=== PATIENT | male | born 1980 | race Caucasian/White ===

== ENCOUNTER 2019-09-29 10:00 | Inpatient (IN) | payer MEDICAID ==
[~2019-09-29] VITALS: Ht 167.6 cm; Wt 70.3 kg
[2019-09-29 11:02] LABS: MEAN CORPUSCULAR HEMOGLOBIN 30.3 pg (28.0-32.0); MEAN CORPUSCULAR VOLUME 87.7 fL (80.0-94.0); MEAN PLATELET VOLUME 7.7 fl (7.4-10.4); PLATELET 134 x1000/uL (130-400); RED BLOOD CELL COUNT 2.18 mill/uL (4.7-6.1); RED CELL DISTRIBUTION WIDTH 14.5 % (11.6-14.6)
[2019-09-29 11:05] LABS: CHLORIDE 105 mEq/L (98-107)
[2019-09-29] MEDS ORDERED: OXYCODONE HCL/ACETAMINOPHEN 5/325MG TABLET PO ONE (11:15)
[2019-09-29 11:19] LABS: HEMOGLOBIN. 6.6 g/dL (14.0-18.0)
[2019-09-29 11:20] LABS: HEMATOCRIT. 19.1 % (42.0-52.0)
[2019-09-29 11:43] LABS: PLATELET ESTIMATE NORMAL
[2019-09-29] MEDS ORDERED: LIDOCAINE HCL 1% 20ML VIAL (Pyxis) INJ ONE (12:58)
[2019-09-29] MEDS ORDERED: SODIUM BICARBONATE 4% (2.4MEQ) 5ML VIAL IV ONE (12:58)
[2019-09-29] MEDS ORDERED: IPRATROPIUM/ALBUTEROL 0.5-3(2.5)MG/3ML NEB NEB PRN (13:15)
[2019-09-29] MEDS ORDERED: DOCUSATE SODIUM 100MG CAPSULE PO PRN (13:15)
[2019-09-29] MEDS ORDERED: MAGNESIUM/ALUMINUM HYDROXIDE/SIMETHICONE 30ML UDC PO PRN (13:15)
[2019-09-29] MEDS ORDERED: ACETAMINOPHEN 325MG TABLET PO PRN (13:15)
[2019-09-29] MEDS ORDERED: DIPHENHYDRAMINE 50MG/ML VIAL IV PRN (13:15)
[2019-09-29] MEDS ORDERED: CLONIDINE 0.1MG TABLET PO PRN (13:15)
[2019-09-29] MEDS ORDERED: ONDANSETRON HCL 4MG/2ML INJ IV PRN (13:15)
[2019-09-29] MEDS ORDERED: NITROGLYCERIN 0.4MG TABLET SL SL PRN (13:15)
[2019-09-29] MEDS ORDERED: ENOXAPARIN 40MG/0.4ML SYR SUBCUT SCH ×2 (13:15→21:00)
[2019-09-29] MEDS ORDERED: GUAIFENESIN 200MG/10ML SUGAR FREE UDC PO PRN (13:15)
[2019-09-29] MEDS: AMLODIPINE 10MG TABLET PO SCH (13:59)
[2019-09-29 14:58] LABS: PHOSPHORUS 8.5 mg/dL (2.5-4.9)
[2019-09-29 15:18] LABS: TOTAL IRON BINDING CAPACITY 246 ug/dL (250-450)
[2019-09-29] MEDS ORDERED: SEVELAMER CARBONATE 800 MG TABLET PO SCH (17:00)
[2019-09-29] MEDS: SEVELAMER CARBONATE 800 MG TABLET PO SCH (18:13)
[2019-09-29 20:00] VITALS: BP 159/88
[2019-09-29] MEDS ORDERED: PREDNISONE 5MG TABLET PO NR (20:00)
[2019-09-29] MEDS: FAMOTIDINE 20MG TABLET PO SCH (20:58)
[2019-09-29] MEDS ORDERED: ZOLPIDEM TARTRATE 5MG TABLET PO PRN (21:00)
[2019-09-29 23:59] LABS: CREATINE KINASE 88 IU/L (39-308)
[2019-09-30] VITALS: BP 129/88
[2019-09-30] LABS: CREATINE KINASE MB FRACTION < 1.0 ng/mL (0.5-3.6)
[2019-09-30 04:00] VITALS: BP 167/99
[2019-09-30] MEDS ORDERED: TACR1CAP MT (04:06)
[2019-09-30] MEDS ORDERED: LISI10TA5 MT (04:06)
[2019-09-30] MEDS ORDERED: PROG1 MT (04:06)
[2019-09-30] MEDS ORDERED: PRED5TAB MT (04:06)
[2019-09-30] MEDS ORDERED: MYCO250C MT (04:06)
[2019-09-30] MEDS ORDERED: ERGO400C MT (04:15)
[2019-09-30] MEDS ORDERED: MAGN200T5 PO (04:15)
[2019-09-30] MEDS ORDERED: PRAV20TA57 MT (04:15)
[2019-09-30] MEDS ORDERED: DILT-27 PO (04:15)
[2019-09-30] MEDS ORDERED: CALC0.253 MT (04:15)
[2019-09-30] MEDS ORDERED: OMEP20CA14 PO (04:15)
[2019-09-30] MEDS ORDERED: FERR325T6 MT (04:15)
[2019-09-30 06:50] LABS: PHOSPHORUS 4.9 mg/dL (2.5-4.9)
[2019-09-30 07:22] LABS: BASOPHILS % 0.7 % (0.0-2.0); EOSINOPHILS % 0.4 % (0.0-5.0); HEMOGLOBIN. 7.5 g/dL (14.0-18.0); LYMPHOCYTES % 23.7 % (20.0-50.0); MEAN CORPUSCULAR HEMOGLOBIN 29.2 pg (28.0-32.0); MEAN CORPUSCULAR VOLUME 85.6 fL (80.0-94.0); MEAN PLATELET VOLUME 7.1 fl (7.4-10.4); MONOCYTES % 8.2 % (2.0-8.0); PLATELET 146 x1000/uL (130-400); RED BLOOD CELL COUNT 2.57 mill/uL (4.7-6.1); RED CELL DISTRIBUTION WIDTH 15.3 % (11.6-14.6)
[2019-09-30 08:00] VITALS: BP 146/85
[2019-09-30] MEDS: SEVELAMER CARBONATE 800 MG TABLET PO SCH ×2 (08:08→12:19)
[2019-09-30] MEDS: AMLODIPINE 10MG TABLET PO SCH (08:50)
[2019-09-30] MEDS: FAMOTIDINE 20MG TABLET PO SCH (08:51)
[2019-09-30] MEDS ORDERED: FOLIC ACID/VITAMIN B COMP W-C TABLET PO SCH (09:00)
[2019-09-30] MEDS ORDERED: CALCITRIOL 0.25MCG CAPSULE PO SCH (09:00)
[2019-09-30 12:32] VITALS: BP 142/78
[2019-09-30 12:47] VITALS: BP 151/89
[2019-09-30] MEDS ORDERED: ENOXAPARIN 30MG/0.3ML SYR SUBCUT SCH (17:00)
[2019-10-04 06:09] LABS: 25-HYDROXY VITAMIN D3 7.1 ng/mL (.)
== END 2019-09-30 14:26 | disposition home or self-care (01) | DRG 466 ==
LOC: ER 10:00 → 6WST 12:31 → ENRESERV 18:05
PROVIDERS: ADMIT Internal Medicine; ATTEND Internal Medicine
PROC: 02HV33Z Insertion of Infusion Device into Superior Vena Cava, Percutaneous Approach (ICD-10-PCS; principal; 2019-09-29)
PROC: B548ZZA Ultrasonography of Superior Vena Cava, Guidance (ICD-10-PCS; 2019-09-29)
PROC: 5A1D70Z Performance of Urinary Filtration, Intermittent, Less than 6 Hours Per Day (ICD-10-PCS; 2019-09-29)
PROC: 30233N1 Transfusion of Nonautologous Red Blood Cells into Peripheral Vein, Percutaneous Approach (ICD-10-PCS; 2019-09-30)
DX: T82.510A Breakdown (mechanical) of surgically created arteriovenous fistula, initial encounter (principal); N18.6 End stage renal disease; I13.2 Hypertensive heart and chronic kidney disease with heart failure and with stage 5 chronic kidney disease, or end stage renal disease; E44.0 Moderate protein-calorie malnutrition; E87.2 Acidosis; D63.8 Anemia in other chronic diseases classified elsewhere; E83.51 Hypocalcemia; K29.70 Gastritis, unspecified, without bleeding; K64.9 Unspecified hemorrhoids; I50.31 Acute diastolic (congestive) heart failure; N25.81 Secondary hyperparathyroidism of renal origin; Y82.8 Other medical devices associated with adverse incidents; Z87.11 Personal history of peptic ulcer disease; Z94.0 Kidney transplant status; Z99.2 Dependence on renal dialysis; Y92.89 Other specified places as the place of occurrence of the external cause; Z79.899 Other long term (current) drug therapy
CPT/HCPCS: 36415; 71045; 76937; 77001; 80048; 80053; 80061; 80197; 82306; 82550; 82553; 82607; 82746; 83036; 83540; 83550; 83735; 83970; 84100; 84484; 85025; 86850; 86900; 86920; 93970; 99285; C1752; J1642; J3490; J7512; P9016

== ENCOUNTER 2022-10-22 15:24 | Inpatient (IN) | payer MEDICAID, OTHER ==
[~2022-10-22] VITALS: Ht 167.6 cm; Wt 83.9 kg
[~2022-10-22 15:24] MED LIST: CALC0.253 PO; DILT-27 PO; DOCU-150 PO; ERGO400C PO; FERR325T6 PO; FOLI0.8T23 MT; LISI10TA26 PO; MAGN200T5 PO; MYCO250C PO; OMEP20CA14 PO; PRAV20TA57 PO; PRED5TAB PO; REN800 PO; SENN-178 PO; TRAM50TA3 PO
[2022-10-22] MEDS ORDERED: FAMOTIDINE 20MG TABLET PO ONE (18:30)
[2022-10-22 18:44] LABS: BASOPHILS % 0.9 % (0.0-2.0); EOSINOPHILS % 2.3 % (0.0-5.0); HEMATOCRIT. 23.4 % (42.0-52.0); LYMPHOCYTES % 21.6 % (20.0-50.0); MEAN CORPUSCULAR HEMOGLOBIN 19.9 pg (28.0-32.0); MEAN CORPUSCULAR VOLUME 67.6 fL (80.0-94.0); MEAN PLATELET VOLUME 7.5 fl (7.4-10.4); MONOCYTES % 8.8 % (2.0-8.0); NEUTROPHILS % 66.4 % (40.0-76.0); PLATELET 291 x1000/uL (130-400); RED BLOOD CELL COUNT 3.46 mill/uL (4.7-6.1); RED CELL DISTRIBUTION WIDTH 17.6 % (11.6-14.6)
[2022-10-22] MEDS ORDERED: PANTOPRAZOLE SODIUM 40 MG/VIAL IV ONE (18:45)
[2022-10-22 18:48] LABS: HEMOGLOBIN. 6.9 g/dL (14.0-18.0)
[2022-10-22 18:50] LABS: CHLORIDE 114 mEq/L (98-107)
[2022-10-22 19:18] LABS: PLATELET ESTIMATE NORMAL
[2022-10-22 19:32] LABS: CLARITY URINE CLEAR (CLEAR); COLOR URINE YELLOW (YELLOW); KETONES URINE NEGATIVE (NEGATIVE); LEUKOCYTE ESTERASE URINE NEGATIVE (NEGATIVE); NITRITE URINE NEGATIVE (NEGATIVE); OCCULT BLOOD URINE NEGATIVE (NEGATIVE); PH URINE 6.5 (4.5-8.0); PROTEIN URINE NEGATIVE (NEGATIVE); SPECIFIC GRAVITY URINE 1.019 (1.005-1.030); UROBILINOGEN URINE 0.2 E.U./dL (0.2-1.0)
[2022-10-22] MEDS ORDERED: PANTOPRAZOLE 80 MG in SODIUM CHLORIDE 0.9% 100 ML IV SCH (19:45)
[2022-10-22] MEDS ORDERED: MORPHINE SULFATE 4 MG/ML CPJ (NOT FOR IM USE) IV STA (19:46)
[2022-10-22] MEDS ORDERED: ONDANSETRON HCL 4MG/2ML INJ IV STA (19:46)
[2022-10-22] MEDS ORDERED: PANTOPRAZOLE SODIUM 40 MG/VIAL IV NR (20:30)
[2022-10-22] MEDS ORDERED: FAMOTIDINE 20MG TABLET PO NR (20:30)
[2022-10-22] MEDS: PANTOPRAZOLE 80 MG in SODIUM CHLORIDE 0.9% 100 ML IV SCH (20:50)
[2022-10-22] MEDS ORDERED: SODIUM CHLORIDE 0.9% 1,000 ML IV ONE (22:45)
[2022-10-22] MEDS ORDERED: DIPHENHYDRAMINE 50MG/ML VIAL IV NR (22:45)
[2022-10-23] MEDS: PANTOPRAZOLE 80 MG in SODIUM CHLORIDE 0.9% 100 ML IV SCH (09:18)
[2022-10-23] MEDS ORDERED: ACETAMINOPHEN 325MG TABLET PO PRN (10:45)
[2022-10-23] MEDS ORDERED: ONDANSETRON HCL 4MG/2ML INJ IV PRN (10:45)
[2022-10-23 16:00] VITALS: BP 127/78
[2022-10-23] MEDS ORDERED: PANTOPRAZOLE SODIUM 40 MG/VIAL IV SCH (17:00)
[2022-10-23 17:29] VITALS: BP 126/88
[2022-10-23] MEDS ORDERED: TACR5CAP MT (18:18)
[2022-10-23] MEDS ORDERED: NIFE-33 PO (18:18)
[2022-10-23] MEDS ORDERED: TACR1CAP MT (18:18)
[2022-10-23] MEDS ORDERED: CARV3.1242 PO (18:18)
[2022-10-23] MEDS ORDERED: TACR0.5C4 MT (18:18)
[2022-10-23] MEDS ORDERED: ALUM1POW3 MC (18:18)
[2022-10-23] MEDS ORDERED: PANT40TA51 PO (18:18)
[2022-10-23] MEDS: TACROLIMUS 1MG CAPSULE PO SCH (19:03)
[2022-10-23] MEDS: SUCRALFATE 1 G/10 ML UDC PO SCH ×2 (19:03→21:36)
[2022-10-23] MEDS ORDERED: HYDROCODONE/ACETAMINOPHEN 5/325MG TABLET PO PRN (19:30)
[2022-10-23] MEDS ORDERED: NALOXONE HCL 0.4MG/ML VIAL IV PRN (19:30)
[2022-10-23] MEDS ORDERED: TEMAZEPAM 15MG CAPSULE PO PRN (19:45)
[2022-10-23 19:54] LABS: HEMATOCRIT 28.2 % (42.0-52.0); HEMOGLOBIN 8.6 g/dL (14.0-18.0)
[2022-10-23 20:00] VITALS: BP 131/88
[2022-10-23] MEDS ORDERED: INFLUENZA VACCINE 05/PF 0.5 ML SYRINGE IM ONE (20:00)
[2022-10-23 20:41] LABS: TOTAL IRON BINDING CAPACITY 469 ug/dL (250-450)
[2022-10-23 21:09] LABS: FERRITIN < 5 ng/mL (22-322)
[2022-10-23 21:19] LABS: VITAMIN B12 SERUM 762 pg/mL (211-911)
[2022-10-23 21:30] LABS: FOLIC ACID (FOLATE) SERUM > 20.00 ng/mL (>5.38)
[2022-10-23] MEDS: MYCOPHENOLATE MOFETIL 500MG TABLET PO SCH (21:36)
[2022-10-23] MEDS: CARVEDILOL 6.25 MG TABLET PO SCH (21:36)
[2022-10-24] VITALS: BP 114/83
[2022-10-24 01:55] LABS: HEMATOCRIT 26.7 % (42.0-52.0); HEMOGLOBIN 8.2 g/dL (14.0-18.0)
[2022-10-24 04:00] VITALS: BP 125/60
[2022-10-24 04:16] LABS: EOSINOPHILS % 4.8 % (0.0-5.0); HEMATOCRIT. 27.4 % (42.0-52.0); HEMOGLOBIN. 8.6 g/dL (14.0-18.0); LYMPHOCYTES % 28.1 % (20.0-50.0); MEAN CORPUSCULAR HEMOGLOBIN 21.7 pg (28.0-32.0); MEAN PLATELET VOLUME 7.6 fl (7.4-10.4); MONOCYTES % 9.2 % (2.0-8.0); NEUTROPHILS % 56.9 % (40.0-76.0); PLATELET 263 x1000/uL (130-400); RED BLOOD CELL COUNT 3.97 mill/uL (4.7-6.1); RED CELL DISTRIBUTION WIDTH 19.8 % (11.6-14.6)
[2022-10-24 04:17] LABS: INR 1.1; PROTHROMBIN TIME 11.4 sec (9.6-11.0)
[2022-10-24 04:22] LABS: CHLORIDE 110 mEq/L (98-107)
[2022-10-24] MEDS: SUCRALFATE 1 G/10 ML UDC PO SCH ×2 (06:05→15:33)
[2022-10-24 08:00] VITALS: BP 129/71
[2022-10-24] MEDS ORDERED: PREDNISONE 5MG TABLET PO SCH (09:00)
[2022-10-24] MEDS ORDERED: NIFEDIPINE XL 60MG TAB PO SCH (09:00)
[2022-10-24] MEDS ORDERED: EPHEDRINE SULFATE 50MG/ML VIAL ONE (10:21)
[2022-10-24] MEDS ORDERED: PROPOFOL 200MG/20ML VIAL IV ONE (10:21)
[2022-10-24] MEDS ORDERED: MIDAZOLAM HCL 5 MG/5 ML VIAL ONE (10:21)
[2022-10-24] MEDS ORDERED: LIDOCAINE HCL 1% 10 MG/ML 10ML VIAL ONE (10:21)
[2022-10-24 12:00] VITALS: BP 130/74
[2022-10-24] MEDS ORDERED: OMEP40CA20 MT (13:25)
[2022-10-24] MEDS ORDERED: SUCR1TAB MT (13:25)
[2022-10-24] MEDS: TACROLIMUS 1MG CAPSULE PO SCH (15:33)
[2022-10-24] MEDS: MYCOPHENOLATE MOFETIL 500MG TABLET PO SCH (15:34)
[2022-10-24] MEDS: CARVEDILOL 6.25 MG TABLET PO SCH (15:37)
[2022-10-24 15:54] VITALS: BP 121/84
[2022-10-24 16:00] VITALS: BP 121/68
[2022-10-24 16:12] LABS: HEMOGLOBIN 7.9 g/dL (14.0-18.0)
== END 2022-10-24 18:56 | disposition home or self-care (01) | DRG 242 ==
LOC: ER 15:24 → MICUSO 21:17 → EDBEDREQSVC 22:46 → 8WST 10-23 16:39
PROVIDERS: ADMIT Internal Medicine; ATTEND Internal Medicine
PROC: 30233N1 Transfusion of Nonautologous Red Blood Cells into Peripheral Vein, Percutaneous Approach (ICD-10-PCS; principal; 2022-10-22)
PROC: 0DJ68ZZ Inspection of Stomach, Via Natural or Artificial Opening Endoscopic (ICD-10-PCS; 2022-10-24)
DX: K22.11 Ulcer of esophagus with bleeding (principal); I12.0 Hypertensive chronic kidney disease with stage 5 chronic kidney disease or end stage renal disease; D50.0 Iron deficiency anemia secondary to blood loss (chronic); Z20.822 Contact with and (suspected) exposure to COVID-19; K27.9 Peptic ulcer, site unspecified, unspecified as acute or chronic, without hemorrhage or perforation; N18.6 End stage renal disease; E78.5 Hyperlipidemia, unspecified; Z79.899 Other long term (current) drug therapy; Z90.5 Acquired absence of kidney; Z94.0 Kidney transplant status
CPT/HCPCS: 36415; 71045; 74176; 80048; 80053; 81003; 82270; 82607; 82728; 82746; 83540; 83550; 85014; 85018; 85025; 85044; 86850; 86900; 86920; 87426; 93005; 99291; C9113; J1200; J2250; J2270; J2405; J2704; J3490; J7030; J7050; J7507; J7512; J7517; P9016

== ENCOUNTER 2023-02-23 10:04 | Emergency (ER) | payer MEDICAID ==
[~2023-02-23] VITALS: Ht 165.1 cm; Wt 75.0 kg
[~2023-02-23 10:04] MED LIST changes: +ALUM1POW3 MC; +CARV3.1242 PO; +NIFE-33 PO; +OMEP40CA20 MT; +PANT40TA51 PO; +SUCR1TAB MT; +TACR0.5C4 MT; +TACR1CAP MT; +TACR5CAP MT
[2023-02-23 10:11] VITALS: BP 135/88
[2023-02-23 11:26] LABS: CLARITY URINE CLEAR (CLEAR); COLOR URINE ORANGE (YELLOW); KETONES URINE NEGATIVE (NEGATIVE); LEUKOCYTE ESTERASE URINE TRACE (NEGATIVE); NITRITE URINE NEGATIVE (NEGATIVE); OCCULT BLOOD URINE 3+ (NEGATIVE); PH URINE 6.5 (4.5-8.0); PROTEIN URINE 3+ (NEGATIVE); SPECIFIC GRAVITY URINE 1.016 (1.005-1.030)
[2023-02-23 11:33] LABS: BASOPHILS % 0.4 % (0.0-2.0); EOSINOPHILS % 0.9 % (0.0-5.0); HEMATOCRIT. 29.8 % (42.0-52.0); HEMOGLOBIN. 9.1 g/dL (14.0-18.0); LYMPHOCYTES % 16.9 % (20.0-50.0); MEAN CORPUSCULAR HEMOGLOBIN 20.2 pg (28.0-32.0); MEAN CORPUSCULAR VOLUME 66.2 fL (80.0-94.0); MEAN PLATELET VOLUME 7.1 fl (7.4-10.4); MONOCYTES % 8.7 % (2.0-8.0); NEUTROPHILS % 73.1 % (40.0-76.0); PLATELET 312 x1000/uL (130-400); RED CELL DISTRIBUTION WIDTH 24.1 % (11.6-14.6)
[2023-02-23 11:40] LABS: CHLORIDE 113 mEq/L (98-107)
[2023-02-23 12:36] LABS: PLATELET ESTIMATE NORMAL
[2023-02-23] MEDS ORDERED: PHEN-815 MT (15:16)
[2023-02-23] MEDS ORDERED: LEVO750T68 MT (15:16)
== END 2023-02-23 15:41 | disposition home or self-care (01) ==
LOC: ER 10:04
DX: I12.9 Hypertensive chronic kidney disease with stage 1 through stage 4 chronic kidney disease, or unspecified chronic kidney disease (principal); N18.2 Chronic kidney disease, stage 2 (mild); Z79.899 Other long term (current) drug therapy
CPT/HCPCS: 36415; 80053; 81003; 85025; 86850; 86900; 99284